=== PATIENT | male | born 1985 | race Caucasian/White ===

== ENCOUNTER → 2024-07-13 09:45 | Outpatient (REF) | payer OTHER, SELFPAY | LOC: CLAB 09:45 | PROVIDERS: ATTENDING PHYSICIAN Surgery | DX: Z72.52 High risk homosexual behavior (principal) | CPT/HCPCS: 87624; 88112 ==

== ENCOUNTER → 2024-08-05 06:17 | Day surgery (SDC) | payer OTHER, SELFPAY | LOC: GI 06:17 | PROVIDERS: ATTENDING PHYSICIAN Surgery | DX: K62.5 Hemorrhage of anus and rectum (principal); K57.30 Diverticulosis of large intestine without perforation or abscess without bleeding; K64.9 Unspecified hemorrhoids; R21 Rash and other nonspecific skin eruption | CPT/HCPCS: 45378 ==

== ENCOUNTER → 2024-08-11 05:29 | Outpatient (REF) | payer OTHER, SELFPAY ==
[2024-08-15 09:22] LABS: HPV, High Risk Not Detected; HPV, High Risk Source Anal
== END ==
LOC: CLAB 05:29
PROVIDERS: ATTENDING PHYSICIAN Physician Assistant
DX: Z72.52 High risk homosexual behavior (principal)
CPT/HCPCS: 87624; 88112